=== PATIENT | female | born 1960 | race African-American/Black ===

== ENCOUNTER 2020-09-22 12:56 | Emergency (ER) | payer MEDICAID ==
[~2020-09-22] VITALS: Ht 162.6 cm; Wt 89.3 kg
--- NOTE | 2020-09-22 13:53 | NUR ---
Pt arrived with complaints of elevated BG that has been occuring for a few weeks, pt states "My blood sugar is really high and I'm taking metformin, I've been really hot and super thirsty". Pt later stated that she has had a cough for a few weeks with lindsey sputum. Placed on all monitors, IV placed, fluid running, all other VSS. Pt positioned and given a warm blanket for comfort. Xray at bedside.
[2020-09-22] MEDS ORDERED: SODIUM CHLORIDE FLUSH 10ML SYR IVF ONE (14:00)
[2020-09-22] MEDS ORDERED: SODIUM CHLORIDE 0.9% 1,000ML IVBOLUS ONE ×2 (14:00→15:00)
[2020-09-22 14:05] LABS: BASOPHILS % (AUTO) 1 % (0-1); EOSINOPHILS % (AUTO) 4 % (1-7); LYMPHOCYTES % (AUTO) 27 % (22-44); MEAN CORPUSCULAR HEMOGLOBIN 26.7 pg (27.0-34.8); MEAN CORPUSCULAR HGB CONC 32.7 g/dL (32.4-35.8); MEAN PLATELET VOLUME 10.8 fL (7.4-10.4); MONOCYTES % (AUTO) 13 % (2-9); NEUTROPHILS % (AUTO) 56 % (42-75); PLATELET COUNT 179 x10^3/uL (130-400); RED CELL DISTRIBUTION WIDTH 16.9 % (9.6-15.2)
[2020-09-22 14:13] LABS: ALANINE AMINOTRANSFERASE 29 U/L (12-78); ALBUMIN 3.5 g/dL (3.4-5.0); ANION GAP 8 mmol/L (5-15); CALCIUM 9.5 mg/dL (8.5-10.1); CHLORIDE 103 mmol/L (98-107); CREATININE 1.39 mg/dL (0.55-1.02)
[2020-09-22 14:15] LABS: ALKALINE PHOSPHATASE 173 U/L (45-117); BILIRUBIN,TOTAL 0.6 mg/dL (0.2-1.0); TOTAL PROTEIN 7.4 g/dL (6.4-8.2)
[2020-09-22 14:33] LABS: ACETONE, SERUM Small (20mg/dL) (Negative); MD MORPH REVIEW ONLY
[2020-09-22 14:37] LABS: <PLATELET ESTIMATE> ADEQUATE; ANISOCYTOSIS 1+; LARGE PLATELETS 1+; OVALOCYTES 1+
[2020-09-22 14:38] VITALS: BP 128/87
--- NOTE | 2020-09-22 15:16 | NUR ---
Pt reports increasing nausea. Nikhil NÚÑEZ updated on this, orders recieved.
[2020-09-22] MEDS ORDERED: ONDANSETRON 2MG/ML, 2ML ONE (15:19)
[2020-09-22] MEDS ORDERED: ONDANSETRON 2MG/ML, 2ML IVPush ONE (15:30)
[2020-09-22] MEDS ORDERED: INSULIN SINGLE DOSE, ER ONE (16:27)
[2020-09-22] MEDS ORDERED: INSULIN REGULAR 100 UNITS/ML, 3ML VIAL SQ-INSULIN ONE (16:30)
[2020-09-22 16:34] LABS: MICROSCOPIC NOT IND
--- NOTE | 2020-09-22 16:38 | NUR ---
medicated with insulin per AUG. Dr De Guzman at bedside
== END 2020-09-22 17:22 | disposition home or self-care (01) ==
LOC: ED 14:36
DX: E11.65 Type 2 diabetes mellitus with hyperglycemia (principal)
CPT/HCPCS: 36415; 71045; 80053; 81003; 82010; 82800; 82962; 85025; 96361; 96374; 99284; J1815; J2405; J7030

== ENCOUNTER 2020-11-06 04:47 | Emergency (ER) | payer MEDICAID ==
[~2020-11-06] VITALS: Ht 162.6 cm; Wt 93.8 kg
[2020-11-06] MEDS ORDERED: ONDANSETRON 2MG/ML, 2ML ONE (05:06)
[2020-11-06] MEDS ORDERED: ONDANSETRON ODT 4 MG ONE (05:17)
[2020-11-06] MEDS ORDERED: ONDANSETRON ODT 4 MG PO ONE (05:30)
[2020-11-06] MEDS ORDERED: ACETAMINOPHEN 500 MG TABLET PO ONE (05:30)
--- NOTE | 2020-11-06 05:34 | NUR ---
Patient refusing to provide urine at this time stating, "I'm just so sick."
[2020-11-06 05:43] LABS: BASOPHILS % (AUTO) 1 % (0-1); EOSINOPHILS % (AUTO) 0 % (1-7); LYMPHOCYTES % (AUTO) 21 % (22-44); MEAN CORPUSCULAR HEMOGLOBIN 26.5 pg (27.0-34.8); MEAN CORPUSCULAR HGB CONC 32.6 g/dL (32.4-35.8); MEAN PLATELET VOLUME 9.1 fL (7.4-10.4); MONOCYTES % (AUTO) 5 % (2-9); NEUTROPHILS % (AUTO) 73 % (42-75); PLATELET COUNT 206 x10^3/uL (130-400); RED BLOOD COUNT 5.28 x10^6/uL (3.82-5.3); RED CELL DISTRIBUTION WIDTH 15.5 % (9.6-15.2)
[2020-11-06 05:44] LABS: MD NO
[2020-11-06 05:46] VITALS: BP 108/75
[2020-11-06 05:56] LABS: ALANINE AMINOTRANSFERASE 34 U/L (12-78); ALBUMIN 3.2 g/dL (3.4-5.0); ANION GAP 8 mmol/L (5-15); CALCIUM 8.8 mg/dL (8.5-10.1); CHLORIDE 107 mmol/L (98-107); CREATININE 1.48 mg/dL (0.55-1.02)
[2020-11-06 06:03] LABS: ALKALINE PHOSPHATASE 153 U/L (45-117); BILIRUBIN,TOTAL 0.4 mg/dL (0.2-1.0); TOTAL PROTEIN 7.8 g/dL (6.4-8.2)
--- NOTE | 2020-11-06 06:16 | NUR ---
Provided water for patient to attempt a PO challenge.
[2020-11-06] MEDS ORDERED: ACETAMINOPHEN 500 MG TABLET ONE (06:17)
== END 2020-11-06 06:55 | disposition home or self-care (01) ==
LOC: ED 05:25
DX: U07.1 COVID-19 (principal); J18.9 Pneumonia, unspecified organism; B34.9 Viral infection, unspecified; E11.65 Type 2 diabetes mellitus with hyperglycemia; Z88.5 Allergy status to narcotic agent
CPT/HCPCS: 36415; 71045; 80053; 82728; 83615; 85025; 86140; 99284; Q0162; U0003; U0005